=== PATIENT | female | born 2000 | race Caucasian/White ===

== ENCOUNTER 2019-06-06 13:26 | Emergency (ER) | payer SELFPAY ==
[2019-06-06] MEDS ORDERED: Acetaminophen 500 MG TAB ONE (14:24)
[2019-06-06] MEDS ORDERED: Ondansetron ODT 4 MG TAB ONE (14:26)
[2019-06-06 15:45] LABS: Bilirubin Negative (Negative); Blood, Urine Negative (Negative); Clarity Clear (Clear); Glucose, Urine (Dipstick) Normal (Negative); Leukocyte Negative Leu/uL (Negative); Nitrite Negative (Negative); Protein, Urine (Dipstick) Negative (Neg-Trace); Urobilinogen Normal mg/dL (Less than 2)
== END 2019-06-06 18:53 | disposition home or self-care (01) ==
LOC: ERS 13:26
DX: J10.1 Influenza due to other identified influenza virus with other respiratory manifestations (principal); F31.9 Bipolar disorder, unspecified; F43.10 Post-traumatic stress disorder, unspecified; F41.9 Anxiety disorder, unspecified; F17.210 Nicotine dependence, cigarettes, uncomplicated
CPT/HCPCS: 81003; 87804; 99283; Q0162

== ENCOUNTER 2020-04-26 13:45 | Outpatient (CLI) | payer OTHER ==
[2020-04-27 02:04] LABS: SARS-CoV-2 MS2 Positive; SARS-CoV-2 N Gene Negative; SARS-CoV-2 S Gene Negative; SARS-CoV-2 by NAA Not Detected (NotDetected); SARS-CoV-2 orf1ab Negative
== END 2020-04-26 13:46 | disposition home or self-care (01) ==
LOC: LABBT 13:45
PROVIDERS: ATTEND Emergency Medicine
DX: Z01.812 Encounter for preprocedural laboratory examination (principal); Z20.828 Contact with and (suspected) exposure to other viral communicable diseases
CPT/HCPCS: 87635; U0003

== ENCOUNTER 2020-04-29 19:20 | Inpatient (IN) | payer OTHER ==
[2020-04-29 19:55] VITALS: BMI 32.5
[2020-04-29] MEDS: Lactated Ringer's 1,000 ML IV SCH (20:05)
[2020-04-29] MEDS ORDERED: hydrALAZINE 20 MG/ML VIAL SLOW IVP PRN (20:26)
[2020-04-29] MEDS ORDERED: Lidocaine 1% (PF) 30 ML VIAL SC PRN (20:26)
[2020-04-29] MEDS ORDERED: Promethazine HCl 25 MG/ML VIAL IM PRN (20:26)
[2020-04-29] MEDS ORDERED: NS w/ Oxytocin 30 units 500 ML IV PRN (20:26)
[2020-04-29] MEDS ORDERED: Ibuprofen 800 MG TAB PO PRN (20:26)
[2020-04-29] MEDS ORDERED: Ondansetron PF 4 MG/2 ML Vial IVP PRN (20:26)
--- NOTE | 2020-04-29 20:30 | PDOC.FPROB ---
FMR OB H&P: HPI - History of Present Illness Chief Complaint: eIOL Indentification: 20 yo @ 39.2 wga by 7 wk sono History of Present Illness: Patient present for eIOL. Reports good movement. Denies vaginal bleeding, LOF, contractions, dysuria. She believes that she lost her mucous plug 1-2 weeks ago, but has not experienced any labor like symptoms. She denies fever/chills, ROMO, CP, SOB, abdominal pain. Primary Care Physician: FRANDY Archibald FMR OB H&P: Current - Care : 1 Para: 0 Gestational age: 39.2 Due date: 05/04/2020 Dating Criteria: 7 wk sono - OB Labs Blood type: A RH: positive Antibody Screen: negative HIV: negative RPR: negative HepBsAg: negative Rubella: immune Quad screen: unknown Urine drug screen: negative Gonorrhea: negative Chlamydia: negative Pap Smear: ASCUS on 09/27, repeat 09/28 3 hour GTT: 76/116/74 GBS: positive H&H: 12.3 - Additional Ultrasound Additional: US: Grade II placenta FMR OB H&P: History - Past Medical History PMH: denies - OB History OB History: Grade 2 placenta - SCIENTIFIC ARTIST History SCIENTIFIC ARTIST History: History of STI at age 14 ASCUS on pap on 09/27, repeat pap 09/28 Menarche age 11 - Surgical History Sx History: none - Social History Social History: past history of methamphetamine and tobacco use 2 years ago, history of incarceration - Family History Family History: Denies family history FMR OB H&P: Medications - Current Home Medications: Medication Instructions Recorded Confirmed Type Vitamin 1 tablet PO DAILY 04/29/20 04/29/20 History Allergies/Adverse Reactions: Allergies Allergy/AdvReac Type Severity Reaction Status Date / Time No Known Allergies Allergy Verified 04/29/20 19:48 FMR OB H&P: ROS - Review of Systems General: denies: fever/chills, fatigue Eyes: denies: eye pain, vision changes ENT: denies: nasal congestion, rhinorrhea Cardiovascular: denies: chest pain, edema Respiratory: denies: cough, congestion Gastrointestinal: denies: abdominal pain, nausea, vomiting, diarrhea Genitourinary (Female): denies: dysuria, vaginal discharge, vaginal bleeding Musculoskeletal: denies: pain, swelling Neurologic: denies: weakness, headache Integumentary: denies: rash FMR OB H&P: Vital Signs - Maternal Vital signs: BP: 116/58, Temp 98.3 - Heart Tones Baseline: 120 Variability: moderate Acceleration: present Category: category 1 FMR OB H&P: Physical Exam - Physical Exam General: NAD, awake, alert and oriented HEENT: normocephalic and atraumatic, grossly normal vision, grossly normal hearing Neck: supple, FROM Heart: RRR, normal S1/S2 General: CTAB, no respiratory distress Abdomen: gravid, non-tender Musculoskeletal: normal gait and station, FROM in all four extremities Neurological: cranial nerves II through XII intact, sensation to pain,touch and proprioception grossly normal Skin: no rash, no jaundice Lymphatic: no unusual bruising or bleeding, no purpura, no petechia Psychiatric: intact recent and remote memory, good judgement and insight - Pelvic Exam Vulva: normal hair distribution, appropriate brendon stage, no lesions SVE: Closed/thick/high Jackson score: 1 Presentation: Cephalic FMR OB H&P: A/P - Problem List (1) Elective induction of labor planned Current Visit: Yes Status: Acute Code(s): XVH7913 - (2) History of drug abuse Current Visit: Yes Status: Acute Code(s): F19.11 - OTHER PSYCHOACTIVE SUBSTANCE ABUSE, IN REMISSION (3) History of anemia Current Visit: Yes Status: Acute Code(s): Z86.2 - PRSNL HISTORY OF DIS OF THE BLD/BLD-FORM ORG/IMMUN MECHNSM (4) Positive GBS test Current Visit: Yes Status: Acute Code(s): B95.1 - STREPTOCOCCUS, GROUP B, CAUSING DISEASES CLASSD ELSWHR Disposition: 20 yo @ 39.2 wga presents for Raciel Schrader - E @ 1999: closed/thick/high, will place cytotec - FHT: Cat 1, baseline 120 - not currently davin - cephalic on bedside US - will admit to L&D for induction of labor and continuous monitoring GBS + - aware - will start antibiotics once pit is started Grade II Placenta - mBPP on 04/23: reactive NST, MYRON 10.44 - placenta anterior Hx of Drug Abuse, tobacco use - negative drug screenings throughout - will obtain urine drug screen Hx of Anemia - on iron supplementation - will obtain Hgb on admission - last Hgb in clinic 12.3 on 04/11 Hx of ASCUS on Pap - aware - repeat pap smear in September of 2020 Discussion: Date/Time: 04/29/202029 This H&P was discussed with [] and [] who agree with the above documentation and plan. Addendum - Attending - Attending Attestation Date/Time: 04/30/20 1318 I personally evaluated the patient and discussed the management with the team on 04/29. I agree with the History, Examination, Assessment and Plan documented above with any addition or exceptions noted below.
[2020-04-29 20:46] LABS: Hemoglobin 12.4 g/dL (12.0-16.0); Mean Corpuscular HGB CONC 34.6 g/dL (32.0-36.0); Mean Corpuscular Hemoglobin 32.4 pg (27.0-31.0); Mean Corpuscular Volume 93.6 fL (78.0-98.0); Mean Platelet Volume 10.2 fL (7.4-10.4); Platelet Count 221 thou/uL (130-400); RBC Distribution Width 11.8 % (11.5-14.5); Red Blood Cell (RBC) Count 3.83 mill/uL (4.20-5.40); White Blood Cell (WBC) Count 10.9 thou/uL (4.8-10.8)
[2020-04-29] MEDS ORDERED: Penicillin G Potassium 5 MILL.UNITS in Sodium Chloride 0.9% 100 ML IVPB SCH (21:00)
[2020-04-29] MEDS ORDERED: Misoprostol 100 MCG TAB VAG SCH (21:00)
[2020-04-29 21:24] LABS: Syphilis Antibody Nonreactive (Nonreactive); Syphilis Antibody Index 0.03 S/CO (<1.00 Non-Reactive)
[2020-04-30 00:30] LABS: HBSAg Index 0.14 S/CO (0-0.99); Hep B Surf Ag Non-Reactive S/CO (NonReactive)
[2020-04-30] MEDS ORDERED: Misoprostol 100 MCG TAB VAG SCH ×2 (00:30→05:15)
--- NOTE | 2020-04-30 00:32 | PDOC.LDPN ---
Labor & Delivery Progress Note - Subjective Subjective: comfortable - Objective Vital signs reviewed and normal: yes General: NAD Uterine fundus: non tender Dilation: closed Effacement: 0% Station: -3 [place] contractions every: 3-4 -: eIOL - SVE 2000: closed/thick/high, cytotec placed at 2030 - SVE 0020: closed/thick/-3, cervix is mid position and mildly firm, Jackson of 2 - due to difficulty picking up FHT tracing, will monitor strip for [address] 2nd cytotec - toco: q3-4 min - cephalic on bedside US - next SVE at 0430 GBS + - aware - will start antibiotics once pit is started Grade II Placenta - mBPP on 04/23: reactive NST, MYRON 10.44 - placenta anterior Hx of Drug Abuse, tobacco use - negative drug screenings throughout - will obtain urine drug screen Hx of Anemia - on iron supplementation - will obtain Hgb on admission - last Hgb in clinic 12.3 on 04/11 Hx of ASCUS on Pap - aware - repeat pap smear in September of 2020
--- NOTE | 2020-04-30 04:44 | PDOC.LDPN ---
Labor & Delivery Progress Note - Subjective Subjective: comfortable - Objective Vital signs reviewed and normal: yes General: NAD Uterine fundus: non tender Dilation: 1 Effacement: 25% Station: -3 FHT: category 1 [place] contractions every: none -: eIOL - SVE 2000: closed/thick/high, cytotec placed at 2030 - SVE 0020: closed/thick/-3, cervix is mid position and mildly firm, Jackson of 2, 2nd cytotec placed at 0120 - SVE 0430: 06/04/-3, will place third cytotec - FHT: Cat 1, baseline 115 - toco: not davin on toco, patient reports mild cramping - cephalic on bedside US - next SVE at 0830 GBS + - aware - will start antibiotics once pit is started Grade II Placenta - mBPP on 04/23: reactive NST, MYRON 10.44 - placenta anterior Hx of Drug Abuse, tobacco use - negative drug screenings throughout - will obtain urine drug screen Hx of Anemia - on iron supplementation - Hgb: 12.4 on admission Hx of ASCUS on Pap - aware - repeat pap smear in September of 2020 Addendum - Attending - Attending Attestation Date/Time: 04/30/20 4138 I personally evaluated the patient and discussed the management with the team. I agree with the History, Examination, Assessment and Plan documented above with any addition or exceptions noted below.
[2020-04-30] MEDS: Lactated Ringer's 1,000 ML IV SCH (05:31)
[2020-04-30 08:50] LABS: Amphetamine Not Detected (NotDetected); Barbiturates Screen Not Detected (NotDetected); Benzodiazepine Screen Not Detected (NotDetected); Cocaine Metabolite Screen Not Detected (NotDetected); Medtox Control Line Valid? VALID (VALID); Medtox Reader # READER 4; Methadone Not Detected (NotDetected); Methamphetamine Not Detected (NotDetected); Opiate Screen Not Detected (NotDetected); Oxycodone Screen Not Detected (NotDetected); Phencyclidine (PCP) Not Detected (NotDetected); THC/Cannabinoid Screen Not Detected (NotDetected); Tricyclic Screen Not Detected (NotDetected)
--- NOTE | 2020-04-30 08:55 | PDOC.LDPN ---
Labor & Delivery Progress Note - Subjective Subjective: comfortable - Objective Vital signs reviewed and normal: yes General: NAD SVE: /-2 FHT: category 1, variability present [place] contractions every: irregular -: eIOL - SVE 2000: closed/thick/high, cytotec placed at 2030 - SVE 0020: closed/thick/-3, cervix is mid position and mildly firm, Jackson of 2, 2nd cytotec placed at 0120 - SVE 0430: 06/04/-3, will place third cytotec - SVE 0845: /-2, Jackson 7, will start pit and PCN - FHT: Cat 1, 120/mod daylin/ accels +, no decels - toco: irregular ctx, patient reports mild cramping - cephalic on bedside US - next SVE at 1245 GBS + - aware - starting abx @ 0900 Grade II Placenta - mBPP on 04/23: reactive NST, MYRON 10.44 - placenta anterior Hx of Drug Abuse, tobacco use - negative drug screenings throughout - will obtain urine drug screen Hx of Anemia - on iron supplementation - Hgb: 12.4 on admission Hx of ASCUS on Pap - aware - repeat pap smear in September of 2020
[2020-04-30] MEDS ORDERED: Sodium Chloride 0.9% 100 ML ONE (08:57)
[2020-04-30] MEDS: NS w/ Oxytocin 30 units 500 ML IVPB SCH ×2 (09:10→22:14)
--- NOTE | 2020-04-30 11:43 | PDOC.LDPN ---
Labor & Delivery Progress Note - Objective Vital signs reviewed and normal: yes General: NAD, breathing through contractions SVE: 1.5/80/-2 FHT: category 1, variability present [place] contractions every: irregular -: eIOL - SVE 2000: closed/thick/high, cytotec placed at 2030 - SVE 0020: closed/thick/-3, cervix is mid position and mildly firm, Jackson of 2, 2nd cytotec placed at 0120 - SVE 0430: 06/04/-3, will place third cytotec - SVE 0845: /80/-2, Jackson 7, will start pit and PCN - SVE 1140: 1.5/80/-2 - FHT: Cat 1, 120/mod daylin/ accels +, no decels - toco: irregular ctx, patient reports she is starting to feel contractions - cephalic on bedside US GBS + - aware - starting abx @ 0900 Grade II Placenta - mBPP on 04/23: reactive NST, MYRON 10.44 - placenta anterior Hx of Drug Abuse, tobacco use - negative drug screenings throughout - will obtain urine drug screen Hx of Anemia - on iron supplementation - Hgb: 12.4 on admission Hx of ASCUS on Pap - aware - repeat pap smear in September of 2020
[2020-04-30] MEDS: Butorphanol Tartrate 1 MG/ML VIAL SLOW IVP PRN ×2 (12:32→22:13)
[2020-04-30] MEDS ORDERED: Penicillin G 2.5 MILL.units 50 ML ONE (13:21)
[2020-04-30] MEDS: Penicillin G 2.5 MILL.units 2.5 MILL.UNITS in Premix Bag 1 BAG IVPB SCH ×2 (13:24→22:15)
[2020-04-30] MEDS ORDERED: Lidocaine 1% (PF) 30 ML VIAL ONE (13:28)
--- NOTE | 2020-04-30 14:59 | PDOC.LDPN ---
Labor & Delivery Progress Note - Subjective Subjective: comfortable - Objective Vital signs reviewed and normal: yes General: NAD SVE: /-1 FHT: category 1 [place] contractions every: irregular -: eIOL - SVE 2000: closed/thick/high, cytotec placed at 2030 - SVE 0020: closed/thick/-3, cervix is mid position and mildly firm, Jackson of 2, 2nd cytotec placed at 0120 - SVE 0430: 06/04/-3, will place third cytotec - SVE 0845: /-2, Jackson 7, will start pit and PCN - SVE 1140: 1.5/-2 - SVE 1500: /-1, pit at 16 - FHT: Cat 1, 120/mod dalyin/ accels +, no decels - toco: irregular ctx, not picking up well on monitor while patient on side, patient reports she is starting to feel contractions, has gotten stadol x 1 - cephalic on bedside US GBS + - aware - starting abx @ 0900 Grade II Placenta - mBPP on 04/23: reactive NST, MYRON 10.44 - placenta anterior Hx of Drug Abuse, tobacco use - negative drug screenings throughout - will obtain urine drug screen Hx of Anemia - on iron supplementation - Hgb: 12.4 on admission Hx of ASCUS on Pap - aware - repeat pap smear in September of 2020
--- NOTE | 2020-04-30 19:50 | PDOC.LDPN ---
Labor & Delivery Progress Note - Subjective Subjective: painful contractions - Objective Vital signs reviewed and normal: yes General: breathing through contractions Uterine fundus: palpable contractions SVE: /-1/ant/soft @1715 FHT: category 1 [place] contractions every: q2-3 min -: A/P: IUP @39.3 weeks undergoing induction Cat 1 FHTs. Pitocin @16 No cervical change since last check. Discussed option of pitocin break and allow patient to eat dinner and walk around in room versus continuing with pitocin. Patient would like pitocin break and to eat. Will stop pitocin, and allow dinner. Plan to restart around 8pm..
--- NOTE | 2020-04-30 21:02 | PDOC.BPN ---
- Brief Progress Note Encounter Date: 04/30/20 Encounter Time: 20:30 Patient resting comfortably in bed after a break from Pitocin for 3 hours. She endorses occasional contractions that are not too painful. Good movement, no LOF or VB. Vitals WNL. Pitocin is still off. Continue Penicillin. Cat 1 strip with 130bpm b aseline. Moderate variability with positive accels and no decels. Contractions on toco q2-3 minutes. Plan to restart Pitocin at this time. Will recheck cervix at 2130 and will AROM if possible at that time. Continue monitoring. Anticipate Plan discussed with Dr Multani and [place] who agree with the above documentation.
[2020-05-01] MEDS ORDERED: Fentanyl 4 mcg/Bup 0.1% Cadd 100 ML in Premix Bag 1 BAG EPIDURAL SCH (00:30)
--- NOTE | 2020-05-01 00:45 | PDOC.LDPN ---
Labor & Delivery Progress Note - Subjective Subjective: comfortable (epidural placed) - Objective Vital signs reviewed and normal: yes General: NAD, resting Uterine fundus: non tender Dilation: 3 Effacement: 90% Station: -1 FHT: category 1, variability present [place] contractions every: 3 Procedures: AROM AROM: clear fluid Plan: continue plan of care (Continue with Pitocin. Anticipate )
[2020-05-01] MEDS: Penicillin G 2.5 MILL.units 2.5 MILL.UNITS in Premix Bag 1 BAG IVPB SCH ×4 (01:03→14:34)
--- NOTE | 2020-05-01 03:56 | PDOC.LDPN ---
Labor & Delivery Progress Note - Subjective Subjective: comfortable - Objective Vital signs reviewed and normal: yes General: NAD Uterine fundus: non tender Dilation: 4 Effacement: 90% Station: -1 FHT: category 1, variability present [place] contractions every: 3-5 minutes Plan: continue plan of care, pitocin for augmentation (Pit running at 14.) -: Patient has epidural Continuous monitoring Recheck cervix in 3 hours Anticipate
--- NOTE | 2020-05-01 06:20 | PDOC.LDPN ---
Labor & Delivery Progress Note - Subjective Subjective: comfortable - Objective Vital signs reviewed and normal: yes General: NAD Dilation: 10 Effacement: 100% (anterior lip) Station: 1+ FHT: category 1, variability present [place] contractions every: 3-5 minutes Plan: continue plan of care (Continue pitocin. ) -: Patient had an episode where she was put in high [place] and had 2 decels with vomiting. She recovered well after additional position change. Then was a Cat 1 strip with moderate variability and positive accels. Patient was 10/anterior lip/+1. Epidural to be re dosed. Will recheck in 45 minutes-1 hour. Anticipate . Patient discussed with Dr Burris who agrees with the above documentation and plan.
[2020-05-01] MEDS ORDERED: NS w/ Oxytocin 30 units 500 ML ONE (07:15)
--- NOTE | 2020-05-01 08:32 | PDOC.OPDEL ---
OB Operative/Delivery Note Delivery Dr/Surgeon: Mahnaz Estevez, PGY1, Breonna Alvarez PGY2, Dr Hazel Pre-Delivery Diagnosis: elective induction Procedure/Post Delivery Dx: spontaneous vaginal delivery Weeks gestation: 39 (39.4) Anesthesia: epidural - Findings A Sex: male - 1 min: 7 - 5 min: 9 - Additional Findings/Plan Placenta delivered: spontaneous Repaired Obstetrical Laceration: none Estimated blood loss: 100 mL Compilations/Other Findings: Delivering Physician Mahnaz Estevez PGY1, Breonna Alvarez PGY2 Attending Dr Hazel Procedure: Spontaneous Vaginal Delivery Anesthesia: epidural EBL: 100 ml Pre-op Diagnosis: 1. Term intrauterine in labor 2. GBS+ 3. Hx of meth abuse 4. Grade 2 placenta 5. Tobacco use 6. Hx of incarceration Post-op Diagnosis: 1. Term intrauterine , delivered 2. GBS+: adequately treated with PCN 3. Hx of meth abuse 4. Grade 2 placenta: sent for pathology 5. Tobacco use 6. Hx of incarceration Indications: A 20y/o female presents for eIOL Delivery Note: This is 20yo F now P1001 @ 39.4wks who delivered a viable M infant at 0759. Following an uneventful antepartum course, a vigorous male was delivered over an intact perineum in the OA position. Anterior Shoulder and then remainder of the body delivered. nuchal cordx1. The head was held down and mouth and nares were bulb suctioned. Cord clamped and cut and cord blood collected. Placenta delivered intact in the [place] presentation with a 3 vessel cord noted, sent for pathology due to Grade 2 seen on US. Fundal massage was performed and the fundus was firm. The cervix and vagina were inspected and found to have superficial lacerations that were hemostatic on both the left and right vaginal side matt. went to nursery in good condition for routine care. Apgars were 7/9 at 1 & 5 minutes, respectively. Patient tolerated delivery well and went to after routine recovery/care. Post delivery plan: routine recovery Addendum - Attending - Attending Attestation Date/Time: 05/01/20 2796 I was present, assisted and supervised the of a viable male to this 20 yo G1 now P1 @39.4 weeks. Apgars 7/9 Loose nuchal cord x 1 reduced after delivery of body. Shoulders and body delivered easily. Placenta delivered spontaneously an intact. 3V cord. No epis. 2 superficial vaginal abrasions; hemostatic. QBL= 82 mL. and mother in stable condition. Residents: Herb/Antonio
[2020-05-01] MEDS ORDERED: Bupivacaine 0.25% HCL 30 ML VIAL ONE (10:30)
[2020-05-01] MEDS ORDERED: Bisacodyl 10 MG SUPP PR PRN (13:11)
[2020-05-01] MEDS ORDERED: NS / Oxytocin 40 units/1000ml 1,000 ML IV SCH (13:11)
[2020-05-01] MEDS ORDERED: Misoprostol 200 MCG TAB VAG PRN (13:11)
[2020-05-01] MEDS ORDERED: Lanolin Ointment 7 GM TUBE TOP PRN (13:11)
[2020-05-01] MEDS ORDERED: Milk Of Magnesia 30 ML UDCUP PO PRN (13:11)
[2020-05-01] MEDS ORDERED: hydrALAZINE 20 MG/ML VIAL SLOW IVP PRN (13:11)
[2020-05-01] MEDS: Lactated Ringer's 1,000 ML IV SCH ×2 (14:31→14:32)
[2020-05-01] MEDS: Ibuprofen 800 MG TAB PO SCH ×2 (15:10→21:11)
[2020-05-01] MEDS: Ferrous Sulfate 325 MG TAB PO SCH (17:30)
[2020-05-01] MEDS: Docusate Calcium (SURFAK) 240 MG CAP PO SCH (21:12)
[2020-05-01] MEDS ORDERED: Acetaminophen 325 MG TAB PO PRN (23:54)
[2020-05-02] MEDS: Ibuprofen 800 MG TAB PO SCH ×3 (05:23→21:36)
[2020-05-02 06:41] LABS: Hemoglobin 11.9 g/dL (12.0-16.0); Mean Corpuscular HGB CONC 33.6 g/dL (32.0-36.0); Mean Corpuscular Hemoglobin 31.9 pg (27.0-31.0); Mean Platelet Volume 9.9 fL (7.4-10.4); Platelet Count 173 thou/uL (130-400); RBC Distribution Width 12.1 % (11.5-14.5); Red Blood Cell (RBC) Count 3.72 mill/uL (4.20-5.40); White Blood Cell (WBC) Count 10.8 thou/uL (4.8-10.8)
--- NOTE | 2020-05-02 08:08 | PDOC.PP ---
Post Progress Note Post Day #: 1 Subjective: Pt tolerated very well light lochia today wants to go home bonding with well breast feeding well, will get pump pain well controlled PO intake tolerated: yes Flatus: yes Ambulation: yes Vital Signs (12 hours) Temp Pulse Resp BP Pulse Ox 05/02/20 08:02 97.9 F 73 20 98/50 L 98 05/02/20 05:26 97.8 F 67 16 125/78 05/02/20 00:04 97.9 F 59 L 16 113/54 L Weight Weight 78.018 kg - Physical Examination General: NAD Cardiovascular: no m/r/g, RRR Respiratory: clear to auscultation bilaterally, non-labored breathing Abdominal: + bowel sounds, lochia, no distention, appropriately TTP Fundus firm & at: just below umbilicus Skin: no rash Neurological: no gross focal deficits Psychiatric: A&Ox3, normal affect Result Diagrams: 05/02/20 06:14 Additional Labs: Post Labs Hep Bs Antigen Non-Reactive S/CO (NonReactive) 04/29/20 20:38 Blood Type A POSITIVE 04/29/20 21:18 - Assessment/Plan 20 y/o -> 1 delivered via , PP day #1 pain well controlled, continue tyelnol and motrin when discharged light lochia, H/H stable and no need for iron supplement. eat iron rich foods. [facility] UDS neg upon arrival and throughout to have circ per parents request before leaving. Discussed care plan with Dr. Hazel. Addendum - Attending - Attending Attestation Date/Time: 05/02/20 3202 I personally evaluated the patient and discussed the management with Dr. Archibald I agree with the History, Examination, Assessment and Plan documented above with any addition or exceptions noted below - Patient without complaints. Afebrile VSS. A/P: 1) PPD#1 s/p - continue routine care.
[2020-05-02] MEDS ORDERED: Adacel (T-DAP) 0.5 ML SYRINGE IM ONE (09:00)
[2020-05-02] MEDS: Docusate Calcium (SURFAK) 240 MG CAP PO SCH ×2 (09:43→21:35)
[2020-05-02] MEDS: Prenatal Vitamin 1 TAB PO SCH (09:43)
[2020-05-02] MEDS: Ferrous Sulfate 325 MG TAB PO SCH ×2 (09:44→18:18)
[2020-05-03] MEDS: Ibuprofen 800 MG TAB PO SCH (06:01)
--- NOTE | 2020-05-03 06:09 | PDOC.PP ---
Post Progress Note Post Day #: 2 Subjective: Pt tolerated very well light lochia today wants to go home bonding with well breast feeding well, already has pump ordered pain well controlled PO intake tolerated: yes Flatus: yes Ambulation: yes Vital Signs (12 hours) Temp Pulse Resp BP Pulse Ox 05/02/20 19:54 98.1 F 69 16 116/55 L 99 Weight Weight 78.018 kg - Physical Examination General: NAD Cardiovascular: no m/r/g, RRR Respiratory: clear to auscultation bilaterally Abdominal: lochia, appropriately TTP Skin: no rash Neurological: no gross focal deficits Psychiatric: A&Ox3, normal affect Result Diagrams: 05/02/20 06:14 Additional Labs: Post Labs Hep Bs Antigen Non-Reactive S/CO (NonReactive) 04/29/20 20:38 Blood Type A POSITIVE 04/29/20 21:18 - Assessment/Plan 20 y/o -> 1 delivered via , PP day #2 -pain well controlled, continue tyelnol and motrin when discharged -light lochia, H/H stable and no need for iron supplement. eat iron rich foods. -f[facility] in [facility] or sooner if concerns arise. -UDS neg upon arrival and throughout - to have circ today before discharge Discussed care plan with Dr Tobias and Dr. Hazel. Addendum - Attending - Attending Attestation Date/Time: 05/03/20 6994 I personally evaluated the patient and discussed the management with Dr. Estevez I agree with the History, Examination, Assessment and Plan documented above with any addition or exceptions noted below- Patient without complaints. Pain well controlled. Afebrile VSS. A/P: 1) S/P - doing well. Plan to d/c home.
[2020-05-03 08:01] VITALS: BP 111/53; TEMP 97.9
[2020-05-03] MEDS: Prenatal Vitamin 1 TAB PO SCH (08:28)
[2020-05-03] MEDS: Docusate Calcium (SURFAK) 240 MG CAP PO SCH (08:28)
[2020-05-03] MEDS: Ferrous Sulfate 325 MG TAB PO SCH (08:28)
== END 2020-05-03 13:11 | disposition home or self-care (01) | DRG 807 ==
LOC: L&D 19:20 → 3SW 05-01 13:29
PROVIDERS: ADMIT Emergency Medicine; ATTEND Emergency Medicine
PROC: 10E0XZZ Delivery of Products of Conception, External Approach (ICD-10-PCS; principal; 2020-05-01)
PROC: 10907ZC Drainage of Amniotic Fluid, Therapeutic from Products of Conception, Via Natural or Artificial Opening (ICD-10-PCS; 2020-05-01)
DX: O98.82 Other maternal infectious and parasitic diseases complicating childbirth (principal); Z37.0 Single live birth; B95.1 Streptococcus, group B, as the cause of diseases classified elsewhere; F15.11 Other stimulant abuse, in remission; O69.81X0 Labor and delivery complicated by cord around neck, without compression, not applicable or unspecified; Z3A.39 39 weeks gestation of pregnancy
CPT/HCPCS: 36415; 51702; 80306; 85027; 86780; 86850; 86900; 86901; 87340; 88307; J0595; J2405; J2540; J2590; J3490; S0020

== ENCOUNTER 2024-01-30 15:40 | Emergency (ER) | payer OTHER ==
[2024-01-30 16:15] LABS: #Basophils Less than 0.03 10x3/uL (0.0-0.2); %Basophils 0.1 % (0.0-1.0); %Lymphocytes 27.7 % (21.0-51.0); %Monocytes 5.4 % (0.0-10.0); %Neutrophils 65.4 % (42.0-75.0); Hematocrit 35.1 % (36.0-47.0); Hemoglobin 11.9 g/dL (12.0-16.0); Mean Corpuscular HGB CONC 33.9 g/dL (32.0-36.0); Mean Corpuscular Hemoglobin 31.2 pg (27.0-31.0); Mean Corpuscular Volume 92.1 fL (78.0-98.0); Mean Platelet Volume 9.8 fL (7.4-10.4); Platelet Count 266 10x3/uL (130-400); Red Blood Cell (RBC) Count 3.81 mill/uL (4.20-5.40)
[2024-01-30 16:28] LABS: Lipase 14 U/L (8-78)
[2024-01-30 16:31] LABS: ALT (SGPT) 8 U/L (8-55); AST (SGOT) 10 U/L (5-34); Acetaminophen Less than 10 mcg/mL (Less than 10); Albumin 3.7 g/dL (3.5-5.0); Alcohol Less than 10.0 mg/dL (Less than 10); Alkaline Phosphatase 36 U/L (40-110); Anion Gap 11 mmol/L (10-20); BUN (Urea Nitrogen) 12 mg/dL (7.0-18.7); Bilirubin, Total 0.4 mg/dL (0.2-1.2); Calc. Creatinine Clearance 0 mL/min (70-130); Calcium 9.1 mg/dL (7.8-10.44); Carbon Dioxide 22 mmol/L (22-29); Chloride 107 mmol/L (98-107); Estimated GFR 125; Globulin 3.1 g/dL (2.4-3.5); Glucose 94 mg/dL (70-105); Potassium 3.7 mmol/L (3.5-5.1); Protein, Total 6.8 g/dL (6.0-8.3); Salicylate Less than 8.0 mg/dL (Less than 8.0); Sodium 136 mmol/L (136-145)
[2024-01-30 17:26] LABS: Bacteria/HPF None Seen HPF (None Seen); Bilirubin Negative (Negative); Blood, Urine Negative (Negative); CAUTI Indications for Culture Pelvic or flank pain; Clarity Clear (Clear); Glucose, Urine (Dipstick) Normal (Negative); Ketone, Urine Negative (Negative); Leukocyte 250 Leu/uL (Negative); Nitrite Negative (Negative); Protein, Urine (Dipstick) Negative (Neg-Trace); RBC/HPF 0-3 HPF (0-3); Specific Gravity, Urine 1.007 (1.002-1.036); Squamous Epithelial None Seen HPF (0-3); Urobilinogen Normal mg/dL (Less than 2); WBC/HPF None Seen HPF (0-3)
[2024-01-30 17:33] LABS: Urine Culture Reflex No No
[2024-01-30 17:34] LABS: Amphetamine Not Detected (NotDetected); Barbiturates Screen Not Detected (NotDetected); Benzodiazepine Screen Not Detected (NotDetected); Cocaine Metabolite Screen Not Detected (NotDetected); Methadone Not Detected (NotDetected); Methamphetamine Not Detected (NotDetected); Opiate Screen Not Detected (NotDetected); Oxycodone Screen Not Detected (NotDetected); Phencyclidine (PCP) Not Detected (NotDetected); THC/Cannabinoid Screen Not Detected (NotDetected); Tricyclic Screen Not Detected (NotDetected)
[2024-01-30] MEDS ORDERED: Cephalexin 250 MG CAP ONE (20:14)
== END 2024-01-30 21:06 | disposition home or self-care (01) ==
LOC: ERS 15:40
DX: O99.611 Diseases of the digestive system complicating pregnancy, first trimester (principal); O23.41 Unspecified infection of urinary tract in pregnancy, first trimester; N39.0 Urinary tract infection, site not specified; O21.9 Vomiting of pregnancy, unspecified; Z3A.01 Less than 8 weeks gestation of pregnancy
CPT/HCPCS: 36415; 76856; 80053; 80306; 80307; 81001; 83690; 84702; 85025; 93005; 96360

== ENCOUNTER 2025-01-24 14:12 | Emergency (ER) | payer OTHER ==
[2025-01-24 17:33] LABS: #Basophils 0.03 10x3/uL (0.0-0.2); #Eosinophils Less than 0.03 10x3/uL (0.0-0.7); #Monocytes 0.38 10x3/uL (0.11-0.59); #Neutrophils 6.27 10x3/uL (1.40-6.50); %Basophils 0.4 % (0.0-1.0); %Eosinophils 0.1 % (0.0-10.0); %Lymphocytes 19.6 % (21.0-51.0); %Monocytes 4.6 % (0.0-10.0); %Neutrophils 75.2 % (42.0-75.0); Hematocrit 38.1 % (36.0-47.0); Hemoglobin 12.5 g/dL (12.0-16.0); Mean Corpuscular Hemoglobin 29.5 pg (27.0-31.0); Mean Corpuscular Volume 89.9 fL (78.0-98.0); Platelet Count 262 10x3/uL (130-400); Red Blood Cell (RBC) Count 4.24 mill/uL (4.20-5.40); White Blood Cell (WBC) Count 8.33 10x3/uL (4.8-10.8)
[2025-01-24 18:01] LABS: ALT (SGPT) 11 U/L (Less than 34); AST (SGOT) 19 U/L (11-34); Albumin 4.3 g/dL (3.1-4.5); Alkaline Phosphatase 72 U/L (40-110); Anion Gap 13 mmol/L (10-20); BHCG - Serum Negative (NEGATIVE); BUN (Urea Nitrogen) 13 mg/dL (7.0-18.7); Bilirubin, Total 0.3 mg/dL (0.3-1.2); Calc. Creatinine Clearance 0 mL/min (70-130); Calcium 9.5 mg/dL (7.8-10.44); Carbon Dioxide 22 mmol/L (22-29); Chloride 108 mmol/L (98-107); Globulin 2.8 g/dL (2.4-3.5); Glucose 91 mg/dL (70-105); Potassium 4.4 mmol/L (3.5-5.1); Pregs Control Background? CLEAR/WHITE (CLR/WHITE); Pregs Control Bar Appear? YES (CONTROL BAR); Sodium 139 mmol/L (136-145)
== END 2025-01-24 18:22 | disposition home or self-care (01) ==
LOC: ERS 14:12
DX: G43.909 Migraine, unspecified, not intractable, without status migrainosus (principal); R29.700 NIHSS score 0
CPT/HCPCS: 70450; 80053; 84703; 85025; 93005